=== PATIENT | male | born 1995 | race Caucasian/White ===

== ENCOUNTER 2017-01-03 16:21 | Emergency (ER) | payer OTHER ==
[2017-01-03] MEDS ORDERED: NS 1,000 ML IV ONE (16:37)
--- NOTE | 2017-01-03 16:38 | EDPHY ---
H & P Stated Complaint: MIGRAINE HPI/ROS: Chief complaint: Headache History of present illness: This is a 21-year-old male brought to the emergency department by EMS for evaluation and treatment of headache. Patient reports he has a history of headaches for the last 3 years intermittently. He believes they are migraine headaches. He states he was under a tremendous amount of stress last week and believes this triggered the most recent headaches. He had a headache 4 days ago which resolved and then 2 days ago and then today. He describes severe pain. However he is concerned as he has also noted his vision has been going in and out, he is having trouble recognizing people when pain is at its worst and he has now developed numbness on the left side of his face and his left arm. He has never had these type of symptoms with a headache before. Patient denies other associated signs or symptoms including no fevers or cold-like symptoms, no trauma, no actual weakness, no bowel or bladder dysfunction. He is not currently followed by primary care doctor or neurologist. Review of systems: A 10 point review of systems was obtained and other than described above was negative - Personal History Current Tetanus/Diphtheria Vaccine: Yes Tetanus Vaccine Date: <10yrs - Medical/Surgical History Hx Asthma: No Hx Chronic Respiratory Disease: No Hx Diabetes: No Hx Cardiac Disease: No Hx Renal Disease: No Hx Cirrhosis: No Hx Alcoholism: No Hx HIV/AIDS: No Hx Splenectomy or Spleen Trauma: No Other PMH: MIGRAINES - Social History Smoking Status: Former smoker - Physical Exam Exam: General Appearance: Alert, no distress. Eyes: Pupils equal and round no pallor or injection. ENT, Mouth: Mucous membranes moist. Respiratory: There are no retractions, lungs are clear to auscultation. Cardiovascular: Regular rate and rhythm. Gastrointestinal: Abdomen is soft and non tender, no masses, bowel sounds normal. Neurological: Alert and oriented x4. Cranial nerves 2-12 grossly intact. Strength and sensation intact and symmetrical. No pronator drift. Cerebellar function intact using finger to nose and heel to lewis. No meningismus. Skin: Warm and dry, no rashes. Musculoskeletal: Neck is supple non tender. Extremities are symmetrical, full range of motion. Psychiatric: Patient is oriented X 3, there is no agitation. Constitutional: Initial Vital Signs Temperature (C) 36.6 C 01/03/17 16:27 Heart Rate 71 01/03/17 16:27 Respiratory Rate 16 01/03/17 16:27 Blood Pressure 140/70 H 01/03/17 16:27 O2 Sat (%) 99 01/03/17 16:27 O2 Delivery Mode Room Air Allergies/Adverse Reactions: pollen Allergy (Uncoded 12/21/14 13:04) Home Medications: Medication Instructions Recorded NK [No Known Home Meds] 12/21/14 Medical Decision Making - Diagnostics Imaging: MRI of the brain without contrast negative for acute findings ED Course/Re-evaluation: Patient discussed with my primary supervising physician Dr. Roxann West. Patient presents to the emergency department for evaluation and treatment of a headache. Patient has a history of headaches. However these recent headaches have developed new signs and symptoms, patient was most concerned with new paresthesias on the left side of his face and arm. On presentation patient was nontoxic. He was afebrile and vital signs were stable. Physical exam was benign including a nonfocal neurologic exam. MRI was pursued which was negative for acute findings. Patient was symptomatically treated for pain with improvement in pain. Patient will be discharged home. He has an appointment with a new primary care doctor this week Monday, tomorrow. He has further been given referral information to Neurology. Home care is discussed. Strict return precautions were given. Patient voiced understanding and agreement with plan. Differential Diagnosis: Included but not limited to migraine headache, tension headache, cluster headache, chronic daily headache, CVA - Data Points Medications Given: Discontinued Medications Dexamethasone (Decadron Injection) 10 mg IVP EDNOW ONE Stop: 01/03/17 17:51 Last Admin: 01/03/17 18:13 Dose: 10 mg Diphenhydramine HCl (Benadryl Injection) 25 mg IVP EDNOW ONE Stop: 01/03/17 17:51 Last Admin: 01/03/17 18:13 Dose: Not Given Sodium Chloride (Ns) 1,000 mls @ 0 mls/hr IV ONCE ONE PRN Reason: Wide Open Stop: 01/03/17 16:38 Last Admin: 01/03/17 16:42 Dose: 1,000 mls Ketorolac Tromethamine (Toradol) 30 mg IVP EDNOW ONE Stop: 01/03/17 17:51 Last Admin: 01/03/17 18:13 Dose: 30 mg Metoclopramide HCl (Reglan Injection) 10 mg IVP EDNOW ONE Stop: 01/03/17 17:51 Last Admin: 01/03/17 18:13 Dose: 10 mg Departure - Departure Disposition: Home, Routine, Self-Care Clinical Impression: Headache Qualifiers: Headache type: unspecified Headache chronicity pattern: acute headache Intractability: not intractable Qualified Code(s): R51 - Headache Condition: Good Instructions: Migraine Headache (ED) Additional Instructions: Follow-up with a primary care doctor this week as well as a neurologist If symptoms worsen or new symptoms develop return to the emergency department for recheck Referrals: Patient,NotPresent [Unknown] - As per Instructions Torres Guzman DO [Doctor of Osteopathy] - As per Instructions
[2017-01-03] MEDS ORDERED: METOCLOPRAMIDE 10 MG/2 ML VIAL IVP ONE (17:50)
[2017-01-03] MEDS ORDERED: DEXAMETHASONE 10 MG/ML VIAL IVP ONE (17:50)
[2017-01-03] MEDS ORDERED: KETOROLAC 30 MG/1 ML SDV IVP ONE (17:50)
[2017-01-03 18:37] VITALS: BP 124/83; PULSE 75; RESP 18; TEMP 98.1; O2SAT 96
== END 2017-01-03 18:34 | disposition home or self-care (01) ==
LOC: EDUNIT#
DX: R51 Headache (principal); Z87.891 Personal history of nicotine dependence
CPT/HCPCS: 96374; J1200; J1885; J2765